=== PATIENT | male | born 1965 | race Hispanic/Latino ===

== ENCOUNTER 2019-05-30 04:49 | Emergency (ER) | payer OTHER ==
[2019-05-30] MEDS ORDERED: KETOROLAC 60 MG/2 ML INJ IM ONE (05:20)
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
--- NOTE | 2019-05-30 05:59 | Cat Scan Report ---
CT HEAD WITHOUT CONTRAST [place] [facility] [place]NI[place]: Axial slices were obtained through the head. Coronal and sagittal reformatted images were obtained. COMPARISON: None available. FINDINGS: There is no intracranial hemorrhage or extra-axial fluid collection. Ventricles, basilar cisterns, an d sulci appear within normal limits for age. There is no mass lesion or midline shift. No acute helder torial infarct is identified. Bone windows demonstrate there is a lytic lesion in the right posterior parietal bone.. Paranasal sin uses and mastoid air cells appear clear. TECHNIQUE: All CT scans at this facility use dose modulation, iterative reconstruction, automated ex posure control, weight based dosing, when appropriate, to reduce radiation dose to as low as reasonab ly achievable. IMPRESSION: 1. No acute intracranial abnormality. 2. There is a focal lytic lesion in the right posterior parietal bone. Signer Name: Dima Plascencia MD Signed: 05/30/2019 5:54 AM Workstation Name: [id number]
--- NOTE | 2019-05-30 06:00 | XRay Report ---
LEFT HAND 4 VIEWS INDICATION / CLINICAL INFORMATION: dislocated L pinky COMPARISON: None available. FINDINGS: BONES / JOINT(S): There is a fracture of the proximal phalanx of the fifth finger which extends into the MCP joint. There is medial angulation of the distal fragments. No significant arthritis. SOFT TISSUES: There is soft tissue swelling ADDITIONAL FINDINGS: None. Signer Name: Dima Plascencia MD Signed: 05/30/2019 5:56 AM Workstation Name: [id number]
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
[2019-05-30] MEDS ORDERED: MORPHINE 4 MG/1 ML INJ IM ONE (07:36)
[2019-05-30] MEDS ORDERED: MORPHINE 4 MG/1 ML INJ ONE (07:36)
[2019-05-30 07:43] VITALS: BP 131/78
== END 2019-05-30 08:03 | disposition home or self-care (01) ==
LOC: ED 04:49
DX: S62.615A Displaced fracture of proximal phalanx of left ring finger, initial encounter for closed fracture (principal); E11.9 Type 2 diabetes mellitus without complications; Z79.899 Other long term (current) drug therapy; V49.49XA Driver injured in collision with other motor vehicles in traffic accident, initial encounter; Y93.89 Activity, other specified; Y92.488 Other paved roadways as the place of occurrence of the external cause; Y99.8 Other external cause status
CPT/HCPCS: 29125; 70450; 73130; 96372; 99284; J1885; J2270